=== PATIENT | female | born 1980 | race Caucasian/White ===

== ENCOUNTER 2016-09-16 16:04 | Emergency (ER) | payer OTHER ==
[2016-09-16 17:24] VITALS: BP 151/83
--- NOTE | 2016-09-19 17:12 | UC ---
Epistaxis Nasal HPI - HPI Summary HPI Summary: has been taking benadryl for uri, for the past 3 days has had a bloody nose on/ off - History of Current Complaint Chief Complaint: UCGeneralIllness Stated Complaint: NOSEBLEEDS/NASAL CONGESTION Time Seen by Provider: 09/16/16 17:29 Hx Obtained From: Patient Hx Last Menstrual Period: 08/22/16 ?: No Onset/Duration: Sudden Onset, Lasting Minutes, Resolved Timing: Intermittent Episode Lasting Severity Initially: Mild Severity Currently: Mild Pain Intensity: 0 Pain Scale Used: 0-10 Numeric Character: Light Aggravating Factor(s): Nothing Alleviating Factor(s): Pressure Associated Signs And Symptoms: Positive: Sinus Pain, Nasal Discharge. Negative : Bruising, Hematuria, Hematochezia, Recent Abnormal Coagulation Studies, Foreign Body - Allergies/Home Medications Allergies/Adverse Reactions: Allergies Allergy/AdvReac Type Severity Reaction Status Date / Time No Known Allergies Allergy Verified 01/12/16 13:51 Home Medications: Home Medications Albuterol HFA INHALER* [Ventolin HFA Inhaler*] 2 puff INH Q4H PRN 09/16/16 [ History Confirmed 09/16/16] Aspirin [Aspirin Adult Low Dose] 81 mg PO DAILY 09/16/16 [History Confirmed 09/03] Carvedilol TAB* [Coreg TAB*] 3.125 mg PO BID 09/16/16 [History Confirmed ] Cetirizine* [ZyrTEC*] 10 mg PO BEDTIME 09/16/16 [History Confirmed 09/16/16] Cholecalciferol [Vitamin D] 1,000 unit PO WEEKLY 09/16/16 [History Confirmed 09/03] Cimetidine TAB (NF) [Tagamet TAB (NF)] 400 mg PO BID 09/16/16 [History Confirmed 09/16/16] Cyanocobalamin [Vitamin B-12] 1,000 mcg PO DAILY 09/16/16 [History Confirmed 09/03] Cyclobenzaprine TAB* [Flexeril TAB*] 10 mg PO TID PRN 09/16/16 [History Confirmed 09/16/16] Empagliflozin-Metformin HCl [Synjardy 12.5-1000 mg] 1 tab PO BID 09/16/16 [ History Confirmed 09/16/16] Epinephrine [Epipen 2-Kevin] 0.3 mg IM 09/16/16 [History] Gabapentin CAP(*) [Neurontin 300 CAP(*)] 300 mg PO TID 09/16/16 [History Confirmed 09/16/16] Hydrocortisone SUPP* [Anusol HC Supp*] 25 mg NC ONCE PRN 09/16/16 [History Confirmed 09/16/16] Hydroxychloroquine TAB* [Plaquenil TAB*] 200 mg PO BID 09/16/16 [History Confirmed 09/16/16] Ibuprofen [Ibuprofen 200 MG] 400 mg PO DAILY PRN 09/16/16 [History Confirmed 09/03] Levothyroxine TAB* [Synthroid TAB*] 75 mcg PO DAILY 09/16/16 [History Confirmed 09/16/16] Melatonin 5 mg PO BEDTIME PRN 09/16/16 [History Confirmed 09/16/16] Metronidazole (Topical) [Metrogel] 1 % EX BEDTIME 09/16/16 [History Confirmed ] Mirtazapine 45 mg PO BEDTIME 09/16/16 [History Confirmed 09/16/16] Morphine-Naltrexone [Embeda 30-1.2 mg] 1 cap PO DAILY 09/16/16 [History Confirmed 09/16/16] Nystatin TOP POWDER* 1 applic TOPICAL BID PRN 09/16/16 [History Confirmed ] Omalizumab (NF) [Xolair (NF)] 150 mg SUBCUT SEE INSTRUCTIONS 09/16/16 [History Confirmed 09/16/16] Omeprazole 40 mg PO BID 09/16/16 [History Confirmed 09/16/16] Oxybutynin XL TAB* [Ditropan XL TAB*] 10 mg PO BEDTIME 09/16/16 [History Confirmed 09/16/16] Oxycodone TAB(NF) [Oxycodone HCl 10 MG] 10 mg PO Q6H PRN 09/16/16 [History Confirmed 09/16/16] Sertraline* [Zoloft*] 200 mg PO BEDTIME 09/16/16 [History Confirmed 09/16/16] Spironolactone 50 mg PO BID 09/16/16 [History Confirmed 09/16/16] busPIRone TAB* [Buspar TAB*] 10 mg PO TID 09/16/16 [History Confirmed 09/16/16] diPHENhydraMINE PO* [Benadryl PO*] 25 mg PO DAILY PRN 09/16/16 [History Confirmed 09/16/16] PMH/Surg Hx/FS Hx/Imm Hx Previously Healthy: No Endocrine History Of: Reports: Diabetes - TYPE II, Thyroid Disease - HYPO Cardiovascular History Of: Reports: Cardiac Disorders - TACHY, Hypertension Denies: Pacemaker/ICD Respiratory History Of: Reports: Asthma GI/ History Of: Denies: Renal Disease - Surgical History Surgical History: Yes Surgery Procedure, Year, and Place: GALLBLADDER-D&C. T & A - Family History Family History: no reported cardiovascular issues in family lineage - Social History Occupation: Employed Full-time Lives: With Family Alcohol Use: None Substance Use Type: None Smoking Status (MU): Former Smoker When Did the Patient Quit Smoking/Using Tobacco: 4 YRS AGO Review of Systems Constitutional: Negative Skin: Negative Eyes: Negative ENT: Negative, Epistaxis, Other - intermittent episodes of bloody nose Respiratory: Negative Cardiovascular: Negative Gastrointestinal: Negative Genitourinary: Negative Motor: Negative Neurovascular: Negative Musculoskeletal: Negative Neurological: Negative Psychological: Negative All Other Systems Reviewed And Are Negative: Yes Physical Exam Triage Information Reviewed: Yes Appearance: Well-Appearing, No Pain Distress, Well-Nourished Vital Signs: Initial Vital Signs Temp 98.1 F 09/16/16 17:14 Pulse 101 09/16/16 17:14 Resp 20 09/16/16 17:14 BP 151/83 09/16/16 17:14 Pulse Ox 97 09/16/16 17:14 Vital Signs Reviewed: Yes Eye Exam: Normal Eyes: Positive: Conjunctiva Clear ENT Exam: Normal ENT: Positive: Normal ENT inspection, Hearing grossly normal, Pharynx normal, Other: - small area of erythema on left nasal septum/no active bleeding. Negative: Nasal congestion, Nasal drainage Dental Exam: Normal Neck exam: Normal Neck: Positive: Supple, Nontender, No Lymphadenopathy Respiratory Exam: Normal Respiratory: Positive: Chest non-tender, Lungs clear, Normal breath sounds, No respiratory distress, No accessory muscle use Cardiovascular Exam: Normal Cardiovascular: Positive: RRR, No Murmur, Pulses Normal, Brisk Capillary Refill Abdominal Exam: Normal Musculoskeletal Exam: Normal Musculoskeletal: Positive: Strength Intact, ROM Intact, No Edema Neurological Exam: Normal Neurological: Positive: Alert, Muscle Tone Normal Psychological Exam: Normal Skin Exam: Normal Epistaxis Nasal Course/Dx - Course Course Of Treatment: education regarding direct pressure to nose with sx instead of dabbing nose - Differential Dx/Diagnosis Differential Diagnosis/HQI/PQRI: Epistaxis, Sinusitis Provider Diagnoses: Epistaxis now resolved Discharge - Discharge Plan Condition: Stable Disposition: HOME Patient Education Materials: Nosebleed (ED) Referrals: Bindu MCKAY,Kendrick Reina [Primary Care Provider] - If Needed Ferny Schofield MD [Medical Doctor] - If Needed Additional Instructions: Cool Mist humidifier for in the house during the day saline nasal spray stop Benadryl small amount of antibiotic ointment left nare to help prevent drying of the skin
== END 2016-09-16 18:07 | disposition home or self-care (01) ==
LOC: UCCORT 16:04
DX: R04.0 Epistaxis (principal); E11.9 Type 2 diabetes mellitus without complications; Z79.84 Long term (current) use of oral hypoglycemic drugs; E03.9 Hypothyroidism, unspecified; R00.0 Tachycardia, unspecified; I10 Essential (primary) hypertension; J45.909 Unspecified asthma, uncomplicated; Z90.49 Acquired absence of other specified parts of digestive tract; Z87.891 Personal history of nicotine dependence
CPT/HCPCS: 99212; G0463

== ENCOUNTER 2016-10-21 20:48 | Emergency (ER) | payer OTHER ==
[2016-10-21 21:59] VITALS: BP 132/61
[2016-10-21] MEDS ORDERED: Ondansetron ODT TAB* 4 MG PO ONE (22:47)
--- NOTE | 2016-10-21 22:56 | UC ---
Abdominal Pain Female HPI - HPI Summary HPI Summary: 36 yo female with the onset of abd pain this am started periumbilical /now RLQ hurts to walk or change position now with anorexia and nausea has felt feverish chill - History of Current Complaint Chief Complaint: UCAbdominalPain Stated Complaint: AB PAIN/HARD MASS RT SIDE STOMACH AREA Time Seen by Provider: 10/21/16 22:08 Hx Obtained From: Patient Hx Last Menstrual Period: 10/11/16 Onset/Duration: Gradual Onset, Lasting Hours Timing: Constant Severity Initially: Mild Severity Currently: Moderate Pain Intensity: 6 Pain Scale Used: 0-10 Numeric Location: Discrete At: RLQ Radiates: No Character: Aching, Dull Aggravating Factor(s): Food, Movement Alleviating Factor(s): Nothing Associated Signs and Symptoms: Positive: Fever - bob, Decreased Appetite, Nausea Allergies/Adverse Reactions: Allergies Allergy/AdvReac Type Severity Reaction Status Date / Time No Known Allergies Allergy Verified 10/21/16 21:59 Home Medications: Home Medications Hydrocortisone SUPP* [Anusol HC Supp*] 25 mg SC DAILY 10/21/16 [History Confirmed 10/21/16] Insulin Glargine [Basaglar Kwikpen] 100 unit SC DAILY 10/21/16 [History Confirmed 10/21/16] Mirabegron (NF) [Myrbetriq (NF)] 25 mg PO DAILY 10/21/16 [History Confirmed 01/01] Ranitidine HCl [Ranitidine Maximum Streng] 150 mg PO BEDTIME 10/21/16 [History Confirmed 10/21/16] PMH/Surg Hx/FS Hx/Imm Hx Endocrine History Of: Reports: Diabetes - TYPE II, Thyroid Disease - HYPO Cardiovascular History Of: Reports: Cardiac Disorders - TACHY, Hypertension Denies: Pacemaker/ICD Respiratory History Of: Reports: Asthma GI/ History Of: Denies: Renal Disease - Surgical History Surgical History: Yes Surgery Procedure, Year, and Place: GALLBLADDER-D&C. T & A - Family History Known Family History: Positive: Hypertension, Diabetes Family History: no reported cardiovascular issues in family lineage - Social History Alcohol Use: None Substance Use Type: None Smoking Status (MU): Former Smoker When Did the Patient Quit Smoking/Using Tobacco: 4 YRS AGO Review of Systems Constitutional: Fever - bob, Chills Skin: Negative Eyes: Negative ENT: Negative Respiratory: Negative Cardiovascular: Negative Gastrointestinal: Abdominal Pain Genitourinary: Negative Motor: Negative Neurovascular: Negative Musculoskeletal: Negative Neurological: Negative Psychological: Negative All Other Systems Reviewed And Are Negative: Yes Physical Exam Triage Information Reviewed: Yes Appearance: Well-Appearing, No Pain Distress, Well-Nourished Vital Signs: Initial Vital Signs Temp 99.4 F 10/21/16 21:54 Pulse 109 10/21/16 21:54 Resp 18 10/21/16 21:54 BP 132/61 10/21/16 21:54 Pulse Ox 96 10/21/16 21:54 Eye Exam: Normal ENT: Positive: Normal ENT inspection Neck: Positive: Supple, Nontender Respiratory: Positive: Lungs clear, Normal breath sounds, No respiratory distress, No accessory muscle use Cardiovascular: Positive: RRR, No Murmur Abdomen Description: Positive: Soft. Negative: Nontender - tender RLQ, CVA Tenderness (R), CVA Tenderness (L), Hernia @, Hepatomegaly, Splenomegaly Bowel Sounds: Positive: Present Musculoskeletal: Positive: ROM Intact, No Edema Neurological: Positive: Alert Psychological Exam: Normal Skin Exam: Normal Abd Pain Female Course/Dx - Course Course Of Treatment: udip. CG (-). decline EMS transfer-discussed with Mery Zimmerman NP- to [facility] ed - Differential Dx/Diagnosis Provider Diagnoses: acute RLQ abd pain Discharge - Discharge Plan Condition: Stable Disposition: AGAINST MEDICAL ADVICE Referrals: Kendrick Long [Primary Care Provider] -
== END 2016-10-21 23:00 | disposition left against medical advice (07) ==
LOC: UCCORT 20:48
DX: R10.31 Right lower quadrant pain (principal); R11.0 Nausea; Z32.02 Encounter for pregnancy test, result negative; E11.9 Type 2 diabetes mellitus without complications; Z79.4 Long term (current) use of insulin; E03.9 Hypothyroidism, unspecified; R00.0 Tachycardia, unspecified; I10 Essential (primary) hypertension; J45.909 Unspecified asthma, uncomplicated; Z87.891 Personal history of nicotine dependence
CPT/HCPCS: 81003; 84702; 99213; G0463

== ENCOUNTER 2018-10-11 06:27 | Inpatient (IN) | payer OTHER ==
[~2018-10-11 06:27] MED LIST: Buffered Lidocaine 1% SYRIN* 1 ML/SYRINGE INTRADERM ONE; Lactated Ringers 1000 ML Bag* 1,000 ML IV SCH
[2018-10-11] MEDS ORDERED: Heparin VIAL(*) 5000 UNITS/ML VIAL (FIVE THOUSAND) ONE (06:57)
[2018-10-11] MEDS ORDERED: ceFAZolin 1 GM in Dextrose (*) 1 GM/50 ML BAG IVPB ONE (06:58)
[2018-10-11] MEDS ORDERED: ceFAZolin 2 GM in NS PREMIX(*) 2 GM/100 ML BAG IVPB ONE (06:58)
[2018-10-11] MEDS ORDERED: Buffered Lidocaine 1% SYRIN* 1 ML/SYRINGE INTRADERM ONE (06:58)
[2018-10-11] MEDS ORDERED: Ondansetron INJ* 2 MG/ML VIAL ONE (08:09)
[2018-10-11] MEDS ORDERED: Dexamethasone IV* 4 MG/ML 1 ML (4 MG) ONE (08:09)
[2018-10-11] MEDS ORDERED: Propofol* 10 MG/ML 20 ML BTL ONE (08:09)
[2018-10-11] MEDS ORDERED: Lidocaine 2% PF * 5 ML VIAL ONE (08:09)
[2018-10-11] MEDS ORDERED: fentaNYL* 50 MCG/ML 5 ML VIAL (250 MCG VIAL) ONE ×2 (08:09→10:11)
[2018-10-11] MEDS ORDERED: Rocuronium* 10 MG/ML VIAL ONE ×2 (08:10→09:58)
[2018-10-11] MEDS ORDERED: Midazolam* 1 MG/ML 5 ML VIAL (5 MG) ONE (08:10)
[2018-10-11] MEDS ORDERED: Bupivacaine 0.25% W/EPI* 10 ML SDV ONE (08:35)
[2018-10-11] MEDS ORDERED: Methylene Blue 0.5 %* 50 MG/10 ML AMP IV ONE (08:35)
[2018-10-11] MEDS ORDERED: Iohexol 180 (CONTRAST) 10 ML SDV IV ONE (08:36)
[2018-10-11] MEDS ORDERED: Lidocaine 1% INJ* 10 MG/ML 30 ML SDV ONE (09:04)
[2018-10-11] MEDS ORDERED: Ondansetron INJ* 2 MG/ML VIAL IV PRN (11:04)
[2018-10-11] MEDS ORDERED: DiMENhydriNATE IV* 50 MG/ML VIAL IV PUSH PRN (11:04)
[2018-10-11] MEDS ORDERED: Naloxone* 0.4 MG/ML 1 ML VIAL IV PRN (11:04)
[2018-10-11] MEDS ORDERED: Ketorolac INJ* 30 MG/ML 1 ML VIAL ONE (11:44)
[2018-10-11] MEDS ORDERED: Glycopyrrolate IV* 0.2 MG/ML 1 ML VIAL ONE (12:07)
[2018-10-11] MEDS ORDERED: Neostigmine Methylsulfate* 1 MG/ML 10 ML VIAL (1 mg/ml) ONE (12:07)
[2018-10-11] MEDS ORDERED: fentaNYL* 50 MCG/ML 2 ML VIAL (100 MCG VIAL) ONE ×5 (12:07→14:51)
[2018-10-11] MEDS ORDERED: Metoprolol Tartrate IV* 1 MG/ML 5 ML VIAL ONE (12:41)
--- NOTE | 2018-10-11 13:32 | OP ---
Operative Report - Blank - Operative Report Date of Operation: 10/11/18 Note: Brief Operative Note Preop Dx: morbid obesity; hx PE Postop Dx: same Procedure: placement of IVC filter; laparoscopic Kim en Y gastric bypass Anesthesia: GET Surgeon: Sonido Inverted Block Operator: Sandip; DARYN Gomez; SILVA Patel Fluids: 2600 ml RL EBL: 100 ml Specimen: none Drains: 1 DEE DEE Findings: dictated
[2018-10-11] MEDS: fentaNYL* 50 MCG/ML 2 ML VIAL (100 MCG VIAL) IV PRN ×5 (13:43→14:52)
[2018-10-11] MEDS ORDERED: Albuterol HFA INHALER* 8 gm MDI INH PRN (13:54)
[2018-10-11] MEDS ORDERED: Metoprolol Tartrate IV* 1 MG/ML 5 ML VIAL IV PRN (13:58)
[2018-10-11] MEDS ORDERED: Dextrose 50% Syringe 50 ML* 25 GM/50 ML SYRINGE IV PUSH PRN (13:59)
[2018-10-11] MEDS ORDERED: Heparin VIAL(*) 5000 UNITS/ML VIAL (FIVE THOUSAND) SUBCUT SCH (14:00)
[2018-10-11] MEDS ORDERED: Acetaminophen ADULT LIQ* 650 MG/20.3 ML UDC PO PRN (14:03)
[2018-10-11] MEDS ORDERED: Insulin LISPRO* 1 UNITS UNIT SUBCUT ONE (14:10)
[2018-10-11] MEDS: Insulin LISPRO* 1 UNITS UNIT SUBCUT SCH ×2 (14:10→18:30)
[2018-10-11] MEDS ORDERED: HYDROmorphone INJ1* 1 MG/ML SYRINGE ONE ×3 (14:35→15:44)
[2018-10-11] MEDS ORDERED: DiMENhydriNATE IV* 50 MG/ML VIAL ONE (15:25)
[2018-10-11] MEDS ORDERED: Nystatin TOP POWDER* 15 GM BTL TOPICAL PRN (16:24)
[2018-10-11] MEDS ORDERED: DICLOFENAC 1.3% TRANSDERM PRN (16:24)
[2018-10-11] MEDS: Lactated Ringers 1000 ML Bag* 1,000 ML IV SCH (17:05)
[2018-10-11] MEDS: Ketorolac INJ* 30 MG/ML 1 ML VIAL IV PUSH PRN (17:44)
[2018-10-11] MEDS: Ondansetron INJ* 2 MG/ML VIAL IV PRN (18:13)
[2018-10-11] MEDS: HYDROmorphone INJ1* 1 MG/ML SYRINGE IV SLOW PU PRN ×3 (18:33→22:59)
[2018-10-11] MEDS: ALCLOMETASONE DIPROPIONATE EX SCH (20:43)
[2018-10-11] MEDS: Famotidine IV* 10 MG/ML 2 ML (20 mg) IV SLOW PU SCH (20:56)
[2018-10-12] MEDS: Insulin LISPRO* 1 UNITS UNIT SUBCUT SCH ×5 (00:18→23:51)
[2018-10-12] MEDS: Lactated Ringers 1000 ML Bag* 1,000 ML IV SCH ×2 (00:22→06:18)
[2018-10-12] MEDS: Ketorolac INJ* 30 MG/ML 1 ML VIAL IV PUSH PRN ×5 (00:22→23:52)
--- NOTE | 2018-10-12 01:59 | OP ---
CC: [facility]; Primary Care Doctor OPERATIVE REPORT: DATE OF OPERATION: 10/11/18 DATE OF : 78 SURGEON: Juan Head MD TOP BOTTOM ATTACHING MACHINE OPERATOR: DARYN Franco ANESTHESIOLOGIST: Dr. Hearn. ANESTHESIA: General anesthesia. PRE-OP DIAGNOSES: 1. Clinically severe obesity. 2. Type 2 diabetes. 3. Gastroesophageal reflux disease. 4. Hypertension. 5. Obstructive sleep apnea. 6. History of bilateral pulmonary embolus. POST-OP DIAGNOSES: 1. Clinically severe obesity. 2. Type 2 diabetes. 3. Gastroesophageal reflux disease. 4. Hypertension. 5. Obstructive sleep apnea. 6. History of bilateral pulmonary embolus. OPERATIVE PROCEDURE: 1. Placement of an inferior vena cava filter. 2. Laparoscopic Kim-en-Y gastric bypass. ESTIMATED BLOOD LOSS: 100 cc. FLUIDS: 2600 cc. SPECIMEN: None. DRAINS: A #7 DEE DEE drain left. DESCRIPTION OF PROCEDURE: The patient was identified in the preoperative area. I discussed the IVC filter for the first time with her. This had been discussed by nurse practitioner, Yeny Patricio. I w ent over the risks, benefits, and alternatives as well as the rationale for recommending this. The p atient asked questions and she agreed with the procedure. Her groin was then marked at the right and then her abdomen was marked. She was brought to the operating room and placed on the operating tabl e in the supine position. Preoperative antibiotics were given. Sequential devices were placed on teofilo ateral lower extremities. General anesthesia was induced. The patient's right groin was prepped and draped in standard surgical fashion. A time-out was performed. After injection of lidocaine at the right groin, we accessed the right femoral vein. Under fluorosco py, a wire was inserted and we made a stab incision over the wire. We dilated the skin and placed th e dilator into the vein under fluoroscopy. Eclipse retrievable filter. We then placed this di lator onto the injectable catheter, placed this up to the appropriate positioning. Counting off lumb ar spine, we saw our marking between 2nd and 3rd lumbar. It was at this point that I made decision t o put the femoral retrievable catheter in. The dilator was removed. Catheter was placed in the appro priate positioning and pushed up with the dilator to the tip of the catheter. This catheter was slow ly backed out and the filter seated appropriately on the vein. The wiring and tubing were then remov ed. Pressure was held and the bandage placed. The patient tolerated the portion of this procedure we ll. She was re-prepped after being positioned on the table, this time at her abdomen. A time-out was agai n performed after she was draped. Folds of the umbilicus were elevated anteriorly and a Veress needle was inserted into the abdominal c avity, which was then allowed to insufflate to a pressure of 15 mmHg. [place] between the xiphoid and the umbilicus, a 12-mm trocar was inserted. Laparoscope was inserted through this and we saw the Robert ess needle through omentum. This was then removed. Additional trocars were then placed in the following positions: A 12 mm and a 5 mm in the left upper quadrant. From these quadrants, lysis of adhesions was carried out taking omentum off the anterior abdominal wall at the umbilical site and also along the right costal margin where the patient had und ergone an open cholecystectomy. Once this was performed, we placed another 12 and 5 mm trocar in the right upper quadrant. Table was repositioned in reverse Trendelenburg. A Flora retractor was i nserted through a subxiphoid incision in the liver which was very enlarged, was retracted anteriorly to the right. This exposed the gastroesophageal fat pad which we grasped and retracted towards right lower quadrant. Blunt dissection was carried out to expose the left crura. Next, at approximately the third crossing vessel on the lesser curvature, retrogastric tunnel was mad e. We then placed a 45-mm torres HAJA stapling device across this and completed the gastric pouch with t wo additional 60-mm torres HAJA stapling devices. Next, a 32-Ugandan Joselyn tube was then inserted by the anesthesiologist and it went to the distal port ion of the stomach pouch, it appeared the appropriate sizing. We then made incision to try to move rosaura ferrari liver retractor somewhat more inferiorly, so that I can get instruments in through the right upper quadrant port site. This was performed and we then turned our attention to the omentum. Omentum wa s retracted superiorly. The transverse colon identified and then the ligament of Treitz. Approximate ly 50 cm was counted off from the ligament of Treitz and a window was made through the mesentery. Th is was grasped through the left lateral most port site and brought up to the stomach pouch. There wa s minimal tension but once the anesthesiologist put more tension onto the OG tube, the tube came toge ther well, 2- 0 silk sutures were used as stay sutures. Next, a gastrotomy was made over the OG tube and an enterotomy was made with monopolar. We could see inside both stomach and small bowel and we mated the tube with a 30-mm torres HAJA stapling device to cr eate the anastomosis. The common defect was closed with 3-0 PDS sutures, starting in superiorly and also inferiorly and tying them in the middle. Next, the 32-Ugandan tube was then inserted through the anastomosis with ease, it was backed out again and then we transected the bowel at the area where we had made an opening in the mesentery. We util ized a 16 mm torres HAJA stapling device to perform this. Next, the gastrojejunal anastomosis was tested, again placing the 32-Ugandan through the anastomosis a nd clamping the bowel just distal to this. Methylene blue dye test was performed and was negative an d this was done in the typical fashion. The Joselyn tube was then removed by the anesthesiologist. Re view of the anastomosis showed that it was intact. It should also be noted that we did cause an inju ry to the liver with the changing of the positioning of the Flora retractor. The area stopped bl eeding on its own, but Surgicel was placed on this along with the 4x8 gauze which was kept on the inf erior aspect of the left lateral lobe where the split had occurred. This represented about a 3 cm x 1 cm injury on the inferior edge of the left lateral lobe with minimal to no oozing after the initial injury. Next, the Kim limb was addressed and approximately 100 cm was counted off. This was then brought in apposition to the biliopancreatic limb, making sure the proper orientation of the mesentery was emanuel ied out. Enterotomies were made and a 60-mm torres HAJA stapling device was fired to create the anastomo sis which was then completed with additional 2-0 silk sutures in a [id number] fashion. Mesenteri c defect was closed with a running 2-0 silk suture. Review of the abdomen showed no evidence of any significant bleeding at the lysed adhesions area. Th e gastrojejunal anastomosis appeared intact. The liver at this point had 2 fractures in it, both on the inferior aspect of the left lateral lobe, neither with bleeding. Additional Surgicel was placed on both of these sites and the Flora retractor was gently removed to allow the liver to fall back into place. Next, a #7 DEE DEE drain was inserted into the abdominal cavity and brought out through the left lateral m ost port site and sutured to the skin with 3-0 Prolene suture. It was placed at the gastrojejunostomy just under the liver edge on the left. The abdomen was allowed to collapse. Trocars were removed u nder direct vision. All incisions were reapproximated with 4-0 Monocryl subcuticular sutures followe d by sterile dressing. The patient tolerated the procedure well, was transferred to the PACU in stab le condition. [id number]/[facility] #: [id number]
[2018-10-12] MEDS: HYDROmorphone INJ1* 1 MG/ML SYRINGE IV SLOW PU PRN ×4 (04:51→21:46)
[2018-10-12] MEDS: Ondansetron INJ* 2 MG/ML VIAL IV PRN ×3 (06:18→23:58)
[2018-10-12] MEDS: Heparin VIAL(*) 5000 UNITS/ML VIAL (FIVE THOUSAND) SUBCUT SCH ×3 (06:20→21:38)
[2018-10-12 07:05] LABS: Hematocrit 39 % (33-41); Hemoglobin 12.7 g/dL (12.0-16.0); Mean Corpuscular HGB Conc 33 g/dL (31-36); Mean Corpuscular Hemoglobin 25 pg (27-31); Mean Corpuscular Volume 77 fL (80-97); Mean Platelet Volume 7.5 fL (7.4-10.4); Platelet Count 207 10^3/uL (150-450); Red Blood Count 5.03 10^6 /uL (3.70-4.87); Red Cell Distribution Width 16 % (10.5-15); White Blood Count 10.4 10^3/uL (3.5-10.8)
[2018-10-12] MEDS: ALCLOMETASONE DIPROPIONATE EX SCH (09:10)
[2018-10-12] MEDS: Famotidine IV* 10 MG/ML 2 ML (20 mg) IV SLOW PU SCH ×2 (09:28→21:38)
[2018-10-12] MEDS ORDERED: Scopolamine 1.5 mg* PATCH ONE (12:18)
--- NOTE | 2018-10-12 12:28 | PN ---
Progress Note - Progress Note Date of Service: 10/12/18 Note: S: POD #1. c/o "9/10" pain (w/ better relief from Toradol vs Dilaudid). Also feeling shaky and nauseated. No vomiting. No flatus or BM. Ambulating some. O: Vital Signs - 8 hr 10/12/18 10/12/18 10/12/18 04:51 05:50 07:30 Temperature Pulse Rate Respiratory 18 20 18 Rate Blood Pressure (mmHg) O2 Sat by Pulse Oximetry 10/12/18 10/12/18 10/12/18 07:35 08:00 09:27 Temperature 97.5 F Pulse Rate 92 Respiratory 20 18 18 Rate Blood Pressure 149/85 (mmHg) O2 Sat by Pulse 92 Oximetry 10/12/18 10/12/18 10/12/18 10:54 11:32 12:05 Temperature 98.2 F Pulse Rate 94 Respiratory 18 16 18 Rate Blood Pressure 134/83 (mmHg) O2 Sat by Pulse 99 Oximetry Intake and Output Last 24 Hours 10/10/18 10/11/18 10/12/18 10/13/18 06:59 06:59 06:59 06:59 Intake Total 5660 Output Total 2340 100 Balance 3320 -100 Weight 337 lb Intake: IV Fluids 5660 CEFAZOLIN 3 GRAMS 100 LR 5560 Oral 0 Output: DEE DEE #1 140 Urine 2100 100 Estimated Blood Loss 100 Other: Estimated Void Medium Date of Last Bowel 0 Movement # Voids 2 Gen: WN; mild distress varying w/ appearing comfortable Heart: reg Lungs: clear Abd: Quiet; lap sites w/ small amts of bloody drainage. Light serosang drainage in DEE DEE. Soft, w/ incisional tenderness only. UGI: nl Laboratory Tests 10/12/18 06:48 Hgb 12.7 Hct 39 A: s/p lap RYGB, doing ok P: will add scopalamine patch; start gema clears as philip
[2018-10-12] MEDS ORDERED: Scopolamine 1.5 mg* PATCH TRANSDERM SCH (13:00)
[2018-10-12] MEDS: D5W 1/2 NS KCl 20 Meq 1000 ML* 1,000 ML IV SCH ×3 (13:59→21:36)
[2018-10-12] MEDS ORDERED: HYDROcodone/ACET. 7.5/325 LIQ* 15 ML UDC PO PRN (16:50)
[2018-10-12] MEDS ORDERED: HYDROcodone/ACET. 7.5/325 LIQ* 15 ML UDC ONE (16:54)
[2018-10-12] MEDS ORDERED: diPHENhydraMINE IV* 50 MG/ML 1 ml VIAL (BENADRYL) SLOW PUSH PRN (17:14)
[2018-10-12] MEDS: Hydrocortisone 1% CREAM* 30 GM TUBE TOPICAL SCH (21:38)
[2018-10-13] MEDS: D5W 1/2 NS KCl 20 Meq 1000 ML* 1,000 ML IV SCH ×3 (04:11→18:50)
[2018-10-13] MEDS: HYDROmorphone INJ1* 1 MG/ML SYRINGE IV SLOW PU PRN ×3 (04:14→18:49)
[2018-10-13] MEDS: Ondansetron INJ* 2 MG/ML VIAL IV PRN ×2 (06:21→18:49)
[2018-10-13] MEDS: Ketorolac INJ* 30 MG/ML 1 ML VIAL IV PUSH PRN ×3 (06:26→21:29)
[2018-10-13] MEDS: Heparin VIAL(*) 5000 UNITS/ML VIAL (FIVE THOUSAND) SUBCUT SCH ×3 (06:30→21:29)
[2018-10-13] MEDS: Insulin LISPRO* 1 UNITS UNIT SUBCUT SCH ×3 (06:30→18:49)
[2018-10-13] MEDS: Famotidine IV* 10 MG/ML 2 ML (20 mg) IV SLOW PU SCH ×2 (08:26→21:29)
[2018-10-13] MEDS: Hydrocortisone 1% CREAM* 30 GM TUBE TOPICAL SCH ×2 (08:29→21:29)
[2018-10-13] MEDS ORDERED: Metoclopramide IV* 5 MG/ML 2 ML VIAL IV PRN (08:37)
--- NOTE | 2018-10-13 08:52 | PN ---
Progress Note - Progress Note Date of Service: 10/13/18 SOAP: Subjective:POD#2 s/p laparoscopic rny gastric bypass and insertion IVC filter nausea,no vomiting;no flatus;ambulating;good pain control with Toradol and Hydromorphone;liquid Lortab made nausea worse;only able to drink 7 medicine cups for past 24hrs [] Objective: Vital Signs Temp 97.8 F 10/13/18 08:32 Pulse 94 10/13/18 08:32 Resp 18 10/13/18 08:32 BP 148/88 10/13/18 08:32 Pulse Ox 98 10/13/18 08:32 Intake & Output 10/12/18 10/13/18 10/13/18 18:59 06:59 18:59 Intake Total 1020 2090 Output Total 630 935 200 Balance 390 1155 -200 Intake: IV Fluids 990 1970 D5W 1/2 NS 20 meq KCL 1970 LR 990 Oral 30 120 Output: DEE DEE #1 30 35 Urine 600 900 200 lungs:clear bilat;heart:RRR;abd:few bs,DEE DEE sanguinous,small amt;dressings intact, no erythema or drainage;ext:SCDS on [] Assessment:nausea persists;not able to meet oral intake goals yet [] Plan:add Reglan prn;inspiron;ambulate;continue IV fluids []
[2018-10-14] MEDS: Insulin LISPRO* 1 UNITS UNIT SUBCUT SCH ×2 (00:02→06:07)
[2018-10-14] MEDS: D5W 1/2 NS KCl 20 Meq 1000 ML* 1,000 ML IV SCH (02:37)
[2018-10-14] MEDS: Ondansetron INJ* 2 MG/ML VIAL IV PRN (05:43)
[2018-10-14] MEDS: Ketorolac INJ* 30 MG/ML 1 ML VIAL IV PUSH PRN (05:44)
[2018-10-14] MEDS: Heparin VIAL(*) 5000 UNITS/ML VIAL (FIVE THOUSAND) SUBCUT SCH (05:45)
[2018-10-14 08:09] VITALS: BP 139/84
[2018-10-14] MEDS: Famotidine IV* 10 MG/ML 2 ML (20 mg) IV SLOW PU SCH (11:02)
[2018-10-14] MEDS: Hydrocortisone 1% CREAM* 30 GM TUBE TOPICAL SCH (11:02)
[2018-10-15] MEDS ORDERED: Scopolamine PATCH Remove* 1 NOTE MISC PATCH OFF SCH (13:00)
== END 2018-10-14 12:30 | disposition home or self-care (01) | DRG 403 ==
LOC: AA 06:27 → SSU 13:32
PROVIDERS: ADMIT Surgery; ATTEND Surgery
PROC: 0D164ZA Bypass Stomach to Jejunum, Percutaneous Endoscopic Approach (ICD-10-PCS; principal; 2018-10-11 08:30)
PROC: 06H03DZ Insertion of Intraluminal Device into Inferior Vena Cava, Percutaneous Approach (ICD-10-PCS; 2018-10-11 08:30)
DX: E66.01 Morbid (severe) obesity due to excess calories (principal); I26.99 Other pulmonary embolism without acute cor pulmonale; Z68.43 Body mass index [BMI] 50.0-59.9, adult; G47.33 Obstructive sleep apnea (adult) (pediatric); E28.2 Polycystic ovarian syndrome; I10 Essential (primary) hypertension; J45.909 Unspecified asthma, uncomplicated; K21.9 Gastro-esophageal reflux disease without esophagitis; F41.9 Anxiety disorder, unspecified; F32.9 Major depressive disorder, single episode, unspecified; F43.10 Post-traumatic stress disorder, unspecified; G89.29 Other chronic pain; E11.43 Type 2 diabetes mellitus with diabetic autonomic (poly)neuropathy; K31.84 Gastroparesis; M41.9 Scoliosis, unspecified; L71.9 Rosacea, unspecified; M54.5 Low back pain; Z90.49 Acquired absence of other specified parts of digestive tract; Z86.711 Personal history of pulmonary embolism; Z83.3 Family history of diabetes mellitus; Z82.49 Family history of ischemic heart disease and other diseases of the circulatory system; Z82.61 Family history of arthritis; Z83.49 Family history of other endocrine, nutritional and metabolic diseases
CPT/HCPCS: 36415; 43644; 74246; 76000; 81025; 85027; A9270-GY; J0690; J1100; J1170; J1200; J1240; J1644; J1885; J2250; J2405; J2704; J2710; J2765; J3010; J3490